=== PATIENT | female | born 1985 | race Caucasian/White ===

== ENCOUNTER 2017-09-24 19:06 | Emergency (ER) | payer OTHER ==
[~2017-09-24] VITALS: Ht 162.6 cm; Wt 96.2 kg
[2017-09-24 19:18] VITALS: Ht 162.6 cm; Wt 96.2 kg
[2017-09-24 21:20] LABS: CALCIUM 9.1 mg/dL (8.5-10.1); CARBON DIOXIDE 29.3 mmol/L (21-32); CHLORIDE SERUM 105 mmol/L (98-107); CREATININE SERUM 0.6 mg/dL (0.6-1.0); GFR1 > 60 mL/min; GLUCOSE SERUM 105 mg/dL (74-106); POTASSIUM SERUM 4.1 mmol/L (3.5-5.1); SODIUM SERUM 141 mmol/L (136-145)
[2017-09-24 21:24] LABS: ALBUMIN 3.7 g/dL (3.4-5.0); ALKALINE PHOSPHATASE 84 U/L (46-116); ALT/SGPT 58 U/L (14-59); AST/SGOT 109 U/L (15-37); BILIRUBIN TOTAL 0.4 mg/dL (0.20-1.00); LIPASE 162 IU/L (73-393); TOTAL PROTEIN, SERUM 7.2 g/dL (6.4-8.2)
[2017-09-24 21:42] VITALS: BP 137/90
== END 2017-09-24 21:42 | disposition home or self-care (01) ==
LOC: ED 19:06
PROVIDERS: Emergency Medicine
DX: R10.13 Epigastric pain (principal)

== ENCOUNTER 2018-08-26 11:30 | Emergency (ER) | payer OTHER ==
[~2018-08-26] VITALS: Ht 162.6 cm; Wt 93.9 kg
[2018-08-26 11:32] VITALS: Ht 162.6 cm; Wt 93.9 kg
[2018-08-26 12:42] LABS: BASOPHIL % 0.6 % (0-2); PLATELET COUNT 336 x10^3mcL (130-400)
[2018-08-26 13:03] LABS: CALCIUM 9.6 mg/dL (8.5-10.1); CARBON DIOXIDE 31.4 mmol/L (21-32); CHLORIDE SERUM 106 mmol/L (98-107); CREATININE SERUM 0.6 mg/dL (0.6-1.0); GFR1 > 60 mL/min; GLUCOSE SERUM 100 mg/dL (74-106); POTASSIUM SERUM 3.9 mmol/L (3.5-5.1); SODIUM SERUM 142 mmol/L (136-145)
[2018-08-26 13:09] LABS: ALBUMIN 3.6 g/dL (3.4-5.0); ALKALINE PHOSPHATASE 53 U/L (46-116); ALT/SGPT 32 U/L (14-59); AST/SGOT 17 U/L (15-37); BILIRUBIN TOTAL 0.6 mg/dL (0.20-1.00); TOTAL PROTEIN, SERUM 7.1 g/dL (6.4-8.2)
[2018-08-26 14:15] VITALS: BP 132/89
== END 2018-08-26 14:16 | disposition home or self-care (01) ==
LOC: ED 11:30
PROVIDERS: Emergency Medicine
DX: R42 Dizziness and giddiness (principal); R07.89 Other chest pain; R59.0 Localized enlarged lymph nodes; R11.0 Nausea; R05 Cough; R06.02 Shortness of breath
CPT/HCPCS: 36415; 86308; J8597; Q0162

== ENCOUNTER 2019-01-28 14:02 | Inpatient (IN) | payer OTHER ==
[~2019-01-28] VITALS: Ht 165.1 cm; Wt 90.7 kg
[2019-01-28 14:07] VITALS: Ht 165.1 cm; Wt 90.7 kg
[2019-01-28 15:22] LABS: BASOPHIL % 0.8 % (0-2); PLATELET COUNT 436 x10^3mcL (130-400); RED CELL DISTRIBUTION WIDTH 13.9 % (11.5-14.5)
[2019-01-28 15:33] LABS: CALCIUM 8.8 mg/dL (8.5-10.1); CARBON DIOXIDE 31.3 mmol/L (21-32); CHLORIDE SERUM 105 mmol/L (98-107); CREATININE SERUM 0.6 mg/dL (0.6-1.0); GFR1 > 60 mL/min; GLUCOSE SERUM 127 mg/dL (74-106); POTASSIUM SERUM 4.2 mmol/L (3.5-5.1); SODIUM SERUM 141 mmol/L (136-145)
[2019-01-28 15:38] LABS: ALBUMIN 3.6 g/dL (3.4-5.0); ALKALINE PHOSPHATASE 112 U/L (46-116); ALT/SGPT 252 U/L (14-59); AMYLASE 70 U/L (25-115); AST/SGOT 395 U/L (15-37); LIPASE 1088 IU/L (73-393); TOTAL PROTEIN, SERUM 7.4 g/dL (6.4-8.2)
[2019-01-28 17:58] VITALS: BP 135/83
[2019-01-28 18:34] LABS: UA SPECIFIC GRAVITY 1.015 (1.005-1.035); microscopic required? YES; urine erythrocyte NEGATIVE (NEGATIVE)
[2019-01-28 18:55] LABS: FREE T4 1.25 ng/dL (0.76-1.46); FREE THYROXINE INDEX 3.6 ug/dL (1.4-4.5); T4(THYROXINE) 10.1 ug/dL (4.7-13.3)
[2019-01-28 18:57] LABS: T3 TOTAL 1.15 ng/mL
[2019-01-28 19:07] LABS: AMPHETAMINE QUAL UR NONE DETECTED (See below)
[2019-01-28 20:19] VITALS: BP 125/76
[2019-01-28 20:33] LABS: PHOSPHOROUS 3.2 mg/dL (2.5-4.9)
[2019-01-28 20:38] LABS: CHOLESTEROL/HDL RATIO 2.7
[2019-01-28 20:47] LABS: MAGNESIUM 2.1 mg/dL (1.8-2.4)
[2019-01-29 05:52] VITALS: BP 127/79
[2019-01-29 06:26] LABS: BASOPHIL % 0.6 % (0-2); PLATELET COUNT 399 x10^3mcL (130-400); RED CELL DISTRIBUTION WIDTH 14.4 % (11.5-14.5)
[2019-01-29 06:57] LABS: ALKALINE PHOSPHATASE 161 U/L (46-116); ALT/SGPT 664 U/L (14-59); AST/SGOT 764 U/L (15-37); BILIRUBIN DIRECT 2.61 mg/dL (0.0-0.2); BILIRUBIN TOTAL 3.4 mg/dL (0.20-1.00); CALCIUM 8.6 mg/dL (8.5-10.1); CARBON DIOXIDE 27.5 mmol/L (21-32); CHLORIDE SERUM 108 mmol/L (98-107); CREATININE SERUM 0.6 mg/dL (0.6-1.0); GFR1 > 60 mL/min; GLUCOSE SERUM 86 mg/dL (74-106); MAGNESIUM 2.1 mg/dL (1.8-2.4); PHOSPHOROUS 2.8 mg/dL (2.5-4.9); POTASSIUM SERUM 3.8 mmol/L (3.5-5.1); SODIUM SERUM 145 mmol/L (136-145); TOTAL PROTEIN, SERUM 6.4 g/dL (6.4-8.2)
[2019-01-29 06:58] LABS: LIPASE 1978 IU/L (73-393)
[2019-01-29 09:47] VITALS: BP 124/82
[2019-01-29 12:47] VITALS: BP 113/58
[2019-01-29 17:07] VITALS: BP 132/84
[2019-01-29 19:47] VITALS: BP 134/83
[2019-01-30 05:49] VITALS: BP 120/71
[2019-01-30 06:46] LABS: BASOPHIL % 0.5 % (0-2)
[2019-01-30 06:59] LABS: PLATELET COUNT 402 x10^3mcL (130-400); RED CELL DISTRIBUTION WIDTH 14.6 % (11.5-14.5)
[2019-01-30 08:43] VITALS: BP 129/76
[2019-01-30 08:45] LABS: CALCIUM 8.8 mg/dL (8.5-10.1); CARBON DIOXIDE 24.3 mmol/L (21-32); CHLORIDE SERUM 107 mmol/L (98-107); CREATININE SERUM 0.6 mg/dL (0.6-1.0); GFR1 > 60 mL/min; GLUCOSE SERUM 68 mg/dL (74-106); MAGNESIUM 1.9 mg/dL (1.8-2.4); PHOSPHOROUS 2.8 mg/dL (2.5-4.9); POTASSIUM SERUM 3.3 mmol/L (3.5-5.1); SODIUM SERUM 142 mmol/L (136-145)
[2019-01-30 09:42] LABS: ALKALINE PHOSPHATASE 164 U/L (46-116); ALT/SGPT 435 U/L (14-59); AST/SGOT 152 U/L (15-37); BILIRUBIN TOTAL 1.06 mg/dL (0.20-1.00); CALCIUM 8.7 mg/dL (8.5-10.1); CARBON DIOXIDE 24.2 mmol/L (21-32); CHLORIDE SERUM 107 mmol/L (98-107); CREATININE SERUM 0.6 mg/dL (0.6-1.0); GFR1 > 60 mL/min; GLUCOSE SERUM 77 mg/dL (74-106); LIPASE 352 IU/L (73-393); POTASSIUM SERUM 3.8 mmol/L (3.5-5.1); SODIUM SERUM 141 mmol/L (136-145); TOTAL PROTEIN, SERUM 6.3 g/dL (6.4-8.2)
[2019-01-30 13:55] VITALS: BP 133/75
[2019-01-30 17:15] VITALS: BP 118/70
[2019-01-30 19:50] VITALS: BP 115/87
[2019-01-31 05:26] VITALS: BP 130/78
[2019-01-31 06:12] LABS: BASOPHIL % 0.3 % (0-2); PLATELET COUNT 379 x10^3mcL (130-400); RED CELL DISTRIBUTION WIDTH 14.2 % (11.5-14.5)
[2019-01-31 06:33] LABS: ALKALINE PHOSPHATASE 141 U/L (46-116); ALT/SGPT 300 U/L (14-59); AST/SGOT 56 U/L (15-37); BILIRUBIN TOTAL 0.71 mg/dL (0.20-1.00); CALCIUM 8.5 mg/dL (8.5-10.1); CHLORIDE SERUM 107 mmol/L (98-107); CREATININE SERUM 0.6 mg/dL (0.6-1.0); GFR1 > 60 mL/min; GLUCOSE SERUM 76 mg/dL (74-106); LIPASE 283 IU/L (73-393); MAGNESIUM 1.9 mg/dL (1.8-2.4); PHOSPHOROUS 2.8 mg/dL (2.5-4.9); POTASSIUM SERUM 3.8 mmol/L (3.5-5.1); SODIUM SERUM 143 mmol/L (136-145); TOTAL PROTEIN, SERUM 6.4 g/dL (6.4-8.2)
[2019-01-31 12:01] VITALS: BP 116/61
[2019-01-31 16:30] VITALS: BP 158/86
[2019-01-31 21:23] VITALS: BP 120/69
[2019-02-01 05:29] VITALS: BP 134/82
[2019-02-01 06:29] LABS: BASOPHIL % 0.2 % (0-2); PLATELET COUNT 374 x10^3mcL (130-400); RED CELL DISTRIBUTION WIDTH 14.4 % (11.5-14.5)
[2019-02-01 06:58] LABS: ALKALINE PHOSPHATASE 122 U/L (46-116); ALT/SGPT 267 U/L (14-59); AST/SGOT 83 U/L (15-37); BILIRUBIN TOTAL 0.68 mg/dL (0.20-1.00); CALCIUM 8.7 mg/dL (8.5-10.1); CARBON DIOXIDE 29.1 mmol/L (21-32); CHLORIDE SERUM 105 mmol/L (98-107); CREATININE SERUM 0.6 mg/dL (0.6-1.0); GFR1 > 60 mL/min; GLUCOSE SERUM 85 mg/dL (74-106); POTASSIUM SERUM 3.9 mmol/L (3.5-5.1); SODIUM SERUM 142 mmol/L (136-145); TOTAL PROTEIN, SERUM 6.3 g/dL (6.4-8.2)
[2019-02-01 07:00] LABS: ALBUMIN 2.9 g/dL (3.4-5.0)
[2019-02-01 07:24] VITALS: BP 121/78
[2019-02-01 11:49] VITALS: BP 116/77
== END 2019-02-01 16:20 | disposition home or self-care (01) | DRG 263 ==
LOC: ED 14:02 → MU 17:15
PROVIDERS: Emergency Medicine; Family Medicine; Surgery; ADMIT Internal Medicine
PROC: 0FT44ZZ Resection of Gallbladder, Percutaneous Endoscopic Approach (ICD-10-PCS; principal; 2019-01-31 08:00)
DX: K85.10 Biliary acute pancreatitis without necrosis or infection (principal); D47.3 Essential (hemorrhagic) thrombocythemia; N39.0 Urinary tract infection, site not specified; R74.0 Nonspecific elevation of levels of transaminase and lactic acid dehydrogenase [LDH]; Z68.34 Body mass index [BMI] 34.0-34.9, adult; E66.9 Obesity, unspecified
CPT/HCPCS: 83880; 84439; C9113; G0378; J0690; J0694; J1170; J1885; J2250; J2405; J3010; J3490; J7030; Q0092; Q9967